=== PATIENT | male | born 1965 | race Caucasian/White ===

== ENCOUNTER 2016-07-26 12:31 | Emergency (ER) | payer OTHER ==
[~2016-07-26] VITALS: Ht 177.8 cm; Wt 90.7 kg
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
[2016-07-26] MEDS ORDERED: DIAZEPAM 5 MG TABLET PO ONE (13:45)
[2016-07-26] MEDS ORDERED: NAPROXEN 500 MG TABLET PO ONE (13:45)
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
--- NOTE | 2016-07-26 14:36 | EKG ---
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
--- NOTE | 2016-07-26 14:40 | EKG ---
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
[2016-07-26] MEDS ORDERED: DIAZ5TAB PO (15:01)
[2016-07-26 15:20] VITALS: BP 146/76
== END 2016-07-26 15:29 | disposition home or self-care (01) ==
LOC: ER 12:31
DX: M54.2 Cervicalgia (principal); G89.29 Other chronic pain; M19.90 Unspecified osteoarthritis, unspecified site; K21.9 Gastro-esophageal reflux disease without esophagitis; I10 Essential (primary) hypertension; V49.49XA Driver injured in collision with other motor vehicles in traffic accident, initial encounter; Y93.89 Activity, other specified; Y92.89 Other specified places as the place of occurrence of the external cause; Y99.8 Other external cause status
CPT/HCPCS: 72125; 93005; 99284-25